=== PATIENT | female | born 1985 | race Two or more races ===

== ENCOUNTER 2025-01-17 22:29 | Emergency (ER) | payer MEDICAID ==
[~2025-01-17] VITALS: Ht 167.6 cm; Wt 129.7 kg
[2025-01-17] MEDS ORDERED: METOCLOPRAMIDE HCL 10 MG/2 ML VIAL ONE (22:55)
[2025-01-17] MEDS ORDERED: DIAZEPAM 5 MG/ML 2 ML DISP.SYRIN ONE (22:56)
[2025-01-17] MEDS ORDERED: MECLIZINE HCL 25 MG TABLET ONE (22:57)
[2025-01-17] MEDS: IV NS 0.9% 1,000 ML BAG IV ONE (23:10)
[2025-01-17] MEDS: DIAZEPAM 5 MG/ML 2 ML DISP.SYRIN IV ONE (23:11)
[2025-01-17] MEDS: METOCLOPRAMIDE HCL 10 MG/2 ML VIAL IV ONE (23:11)
[2025-01-17] MEDS: MECLIZINE HCL 25 MG TABLET PO ONE (23:11)
[2025-01-17 23:37] LABS: CALCIUM, SERUM 9.0 mg/dL (8.5-10.1); CREATININE 0.7 mg/dL (0.6-1.3); PLATELET COUNT (AUTO) 347 K/uL (150-450); RED BLOOD CELL COUNT(AUTO) 4.98 MIL/uL (4.0-5.2); RED CELL DISTRIBUTION WIDTH 15.9 % (11.5-15.0); SODIUM SERUM 138 mmol/L (136-145); UREA NITROGEN, BLOOD 13 mg/dL (7-18); WHITE BLOOD COUNT (AUTO) 13.8 K/uL (4.3-11.0)
[2025-01-18] MEDS ORDERED: METO-295 PO ×2 (00:16→11:55)
[2025-01-18] MEDS ORDERED: MECL-159 PO ×2 (00:16→11:55)
[2025-01-18 00:24] VITALS: BP 116/79; TEMP 98.4; O2SAT 98
[2025-01-18 00:39] LABS: EOSINOPHILS % (MANUAL) 2 % (0-4); LYMPHOCYTES % (MANUAL) 11 % (16-48); MONOCYTES % (MANUAL) 10 % (0-11.0); NEUTROPHILS % (MANUAL) 77 (42-76)
[2025-01-18 00:40] LABS: PLATELET ESTIMATE ADEQUATE
== END 2025-01-18 00:24 | disposition home or self-care (01) ==
LOC: ER 22:32
DX: R42 Dizziness and giddiness (principal); R11.2 Nausea with vomiting, unspecified; R06.02 Shortness of breath
CPT/HCPCS: 99284; 96374; 96361; 96375; 93005; 85027; 80048; 85007; 36415; 84484; 82962; J8597; J3360; J2765; J7030